=== PATIENT | male | born 1970 | race African-American/Black ===

== ENCOUNTER → 2017-03-19 | Outpatient (CLI) | payer OTHER ==
--- NOTE | 2017-03-19 12:01 | DIAGNOSTIC IMAGING REPORT ---
CHEST 2 VIEWS ROUTINE CLINICAL HISTORY: J18.9 PNEUMONIA COMPARISON STUDY: 10/23/2014 FINDINGS: The cardiac and mediastinal contours are normal. There is no evidence of focal pulmonary consolidation. There is no evidence of failure. No pleural effusions are visualized.[ There is minor right apical pleural thickening, unchanged from the prior study. IMPRESSION: Stable nonspecific mild right apical pleural thickening. No acute findings. Electronically signed by: Evan Lipscomb M.D. 03/19/2017 12:00 PM Dictated Date/Time: 03/19/2017 11:59 AM
== END | disposition home or self-care (01) ==
LOC: C.RAD1850 11:41
PROVIDERS: ATTEND Family Medicine
DX: J18.9 Pneumonia, unspecified organism (principal)